=== PATIENT | male | born 1960 | race Two or more races ===

== ENCOUNTER 2017-02-12 18:20 | Emergency (ER) | payer OTHER ==
[~2017-02-12 18:20] MED LIST: FLEXERIL PO; LORTAB 5/500 TA1 TA1 PO; LORTAB 5/500 TA1 TA2 PO; NORCO 5/325 TAB1 TAB PO; PREDNISONE10 MG PO; PRILOSEC20 MG PO
== END 2017-02-12 21:00 | disposition home or self-care (01) ==
LOC: CED 18:20 → CFTX 18:20
DX: L02.212 Cutaneous abscess of back [any part, except buttock and flank] (principal); I10 Essential (primary) hypertension; E78.5 Hyperlipidemia, unspecified; E11.9 Type 2 diabetes mellitus without complications; Z79.4 Long term (current) use of insulin; Z88.0 Allergy status to penicillin
CPT/HCPCS: 10060; 82947; 99283